=== PATIENT | male | born 1980 | race Caucasian/White ===

== ENCOUNTER 2018-04-24 12:53 | Emergency (ER) | payer BC ==
[~2018-04-24] VITALS: Ht 177.8 cm; Wt 88.5 kg
[~2018-04-24 12:53] MED LIST: Ativan PO; BUPROPION XL150 MG PO; Bystolic PO; CYCLOBENZAPRINE10 MG PO; EFFEXOR XR150 MG PO; FLEXERIL10 MG PO; HYDROCODON-ACE1 EAC7 PO; NAPROSYN500 MG PO; NORCO 5/3251 TABLET PO; VENLAFAXINE HCL75 M3 PO; Vicodin,Norco 5/325 PO; WELCHOL625 MG PO; Zestril,Prinivil PO; celeBREX PO
[2018-04-24] MEDS ORDERED: VIBRAMYCIN100 MG PO (14:54)
[2018-04-24 14:58] VITALS: BP 144/105
== END 2018-04-24 14:58 | disposition home or self-care (01) ==
LOC: EME 12:53
DX: S61.250A Open bite of right index finger without damage to nail, initial encounter (principal); W55.01XA Bitten by cat, initial encounter; Z88.1 Allergy status to other antibiotic agents; Z88.0 Allergy status to penicillin; Z88.8 Allergy status to other drugs, medicaments and biological substances
CPT/HCPCS: 99281; 99283

== ENCOUNTER 2018-04-27 09:38 | Inpatient (IN) | payer BC ==
[~2018-04-27] VITALS: Ht 177.8 cm; Wt 89.1 kg
[~2018-04-27 09:38] MED LIST changes: +VIBRAMYCIN100 MG PO
[2018-04-27 10:15] LABS: HEMATOCRIT 36.8 % (38.0-50.0); MCH 25.5 PG (29.0-34.0); MCHC 32.6 G/DL (30.0-36.0); MCV 78.1 FL (86-99); PLATELET COUNT 253 K/uL (156-360); RBC DIS.WIDTH-CV 13.1 % (11.8-14.6); RBC DIS.WIDTH-SD 36.9 % (39-53); RED BLOOD COUNT 4.71 M/uL (4.00-5.50); WHITE BLOOD COUNT 8.6 K/uL (4.1-10.2)
[2018-04-27 11:03] LABS: ALKALINE PHOSPHATASE 71 IU/L (3-129); ALT (GPT) 14 IU/L (3-49); AST (GOT) 18 IU/L (2-34); CHLORIDE 106 MEQ/L (99-109); CREATININE 0.8 MG/DL (0.6-1.3); GFR ESTIMATE (CALCULATED) > 59 mL/min/ (58.99-99999); GLUCOSE 95 mg/dL (70-99); POTASSIUM 3.8 MEQ/L (3.7-5.4); SODIUM 140 MEQ/L (136-147); TOTAL BILIRUBIN 0.3 MG/DL (0.0-1.0); TOTAL PROTEIN 5.9 G/DL (6.4-8.3); UREA NITROGEN (BUN) 9 mg/dL (9-23)
[2018-04-27] MEDS ORDERED: VIBRAMYCIN100 MG PO (12:40)
[2018-04-27] MEDS ORDERED: PERCOCET 5/31 TABLET PO (12:41)
[2018-04-27] MEDS ORDERED: CIPRO500 MG PO (12:41)
[2018-04-27] MEDS ORDERED: EFFEXOR XR75 MG PO (12:42)
[2018-04-27] MEDS ORDERED: ADVIL200 MG PO (12:42)
[2018-04-27] MEDS ORDERED: ALREX 0.2%100 DROP/5 BOTH EYES (12:43)
[2018-04-27] MEDS ORDERED: PRAMIPEXOLE D0.75 MG PO (12:43)
[2018-04-27] MEDS ORDERED: TRAZODONE HCL50 MG PO (12:43)
[2018-04-27 14:28] VITALS: BP 124/74
[2018-04-27 19:37] VITALS: BP 130/78
[2018-04-28 00:11] VITALS: BP 139/74
[2018-04-28 04:07] VITALS: BP 130/85
[2018-04-28 07:21] VITALS: BP 129/85
[2018-04-28 11:23] VITALS: BP 131/72
[2018-04-28 15:10] VITALS: BP 126/85
[2018-04-28 23:53] VITALS: BP 114/66
[2018-04-29 03:23] VITALS: BP 114/69
[2018-04-29 08:42] VITALS: BP 118/76
[2018-04-29] MEDS ORDERED: ROCEPHIN2 GM/50 ML IV ×2 (09:50→12:16)
== END 2018-04-29 12:50 | disposition home or self-care (01) | DRG 603 ==
LOC: EME 09:38 → EDOF 13:07 → 4SOUTH 13:07 → EDOF 13:07 → 4SOUTH 14:11
DX: L03.011 Cellulitis of right finger (principal); L03.113 Cellulitis of right upper limb; F33.9 Major depressive disorder, recurrent, unspecified; S61.250A Open bite of right index finger without damage to nail, initial encounter; W55.01XA Bitten by cat, initial encounter; F41.9 Anxiety disorder, unspecified; G25.81 Restless legs syndrome; G47.00 Insomnia, unspecified; Y93.89 Activity, other specified; Z88.0 Allergy status to penicillin; Z88.1 Allergy status to other antibiotic agents; Z83.3 Family history of diabetes mellitus; Z80.0 Family history of malignant neoplasm of digestive organs
CPT/HCPCS: 73130; 73223; 80053; 85027; 85651; 86140; 87040; 87070; 87075; 87205; 99281; 99285; G0378; J0692; J0696; J0744; J3370; S0030